=== PATIENT | female | born 1975 | race Caucasian/White ===

== ENCOUNTER 2019-01-22 16:43 | Emergency (ER) | payer OTHER ==
[2019-01-22 16:54] VITALS: RESP 18; TEMP 98.4; O2SAT 100; BMI 29.4
[2019-01-22] MEDS ORDERED: Sodium Chloride 0.9% 1,000 ML IV STA (17:05)
--- NOTE | 2019-01-22 17:05 | ED PDOC ---
Arrival/HPI - General Chief Complaint: Abdominal Pain Historian: Patient - History of Present Illness Narrative History of Present Illness (Text): 01/22/19 17:02 43 y/o female, no significant pmh, nkda, c/o epigastric pain started this morning with nausea/vomiting x 1 day. Pt. stated that she has been taking motrin for her toothache this week, started epigastric pain this morning, gnawing pain, on and off, admits nausea with no vomiting, no flank pain, no urinary symptoms, no rash, no other medical or psychological complaints. Past Medical History - Provider Review Nursing Documentation Reviewed: Yes - Psychiatric Hx Substance Use: No Family/Social History - Physician Review Nursing Documentation Reviewed: Yes Family/Social History: Unknown Family HX Smoking Status: Never Smoked Hx Alcohol Use: No Hx Substance Use: No Allergies/Home Meds Allergies/Adverse Reactions: Allergies No Known Allergies Allergy (Verified 01/22/19 17:00) Home Medications: Home Meds Medication Instructions Recorded Confirmed Ibuprofen [Motrin Tab] 400 mg PO Q6 PRN 01/22/19 01/22/19 Review of Systems - Review of Systems Constitutional: absent: Fatigue, Fevers Eyes: absent: Vision Changes ENT: absent: Hearing Changes Respiratory: absent: SOB, Cough Cardiovascular: absent: Chest Pain Gastrointestinal: Abdominal Pain, Nausea. absent: Diarrhea, Vomiting Musculoskeletal: absent: Arthralgias, Back Pain, Neck Pain Skin: absent: Rash, Pruritis Neurological: absent: Headache, Dizziness Psychiatric: absent: Anxiety, Depression, Suicidal Ideation Physical Exam Vital Signs Reviewed: Yes Vital Signs Temp Pulse Resp BP Pulse Ox 01/22/19 16:54 98.4 F 100 H 18 135/81 100 Temperature: Afebrile Blood Pressure: Normal Pulse: Tachycardic Respiratory Rate: Normal Appearance: Positive for: Well-Appearing, Non-Toxic, Comfortable Pain Distress: None Mental Status: Positive for: Alert and Oriented X 3 - Systems Exam Head: Present: Atraumatic, Normocephalic Pupils: Present: PERRL Extroacular Muscles: Present: EOMI Conjunctiva: Present: Normal Ears: Present: NORMAL TM, Normal Canal. No: Erythema Mouth: Present: Moist Mucous Membranes, Normal Lips, Normal Tounge, Other (visible couple dental caries on the rt. upper and lower teeth region noted with no gingivitis or gingival abscess) Pharnyx: No: ERYTHEMA, EXUDATE, TONSILS ENLARGED Nose (External): Present: Atraumatic. No: Abrasion, Contusion, Laceration Nose (Internal): Present: Normal Inspection, No Active Bleeding. No: Rhinorrhea, Septal Hematoma, Epistaxis Neck: Present: Normal Range of Motion, Trachea Midline. No: Meningeal Signs, MIDLINE TENDERNESS, Paraspinal Tenderness, Lymphadenopathy Respiratory/Chest: Present: Clear to Auscultation, Good Air Exchange. No: Respiratory Distress, Accessory Muscle Use Cardiovascular: Present: Regular Rate and Rhythm, Normal S1, S2. No: Murmurs Abdomen: Present: Tenderness (epigastric tenderness, no RLQ tenderness, no LLQ). No: Distention, Peritoneal Signs, Rebound, Guarding Back: Present: Normal Inspection. No: CVA Tenderness, Midline Tenderness, Paraspinal Tenderness, Pain with Leg Raise, Decubitus Ulcer Upper Extremity: Present: Normal Inspection. No: Cyanosis, Edema Lower Extremity: Present: Normal Inspection, NORMAL PULSES, Neurovascularly Intact. No: Edema, Tenderness, Swelling Neurological: Present: GCS=15, CN II-XII Intact, Speech Normal, Motor Func Grossly Intact, Normal Cerebellar Funct, Gait Normal, Memory Normal Skin: Present: Warm, Dry, Normal Color. No: Rashes Lymphatic: No: Cervical Adenopathy Psychiatric: Present: Alert, Oriented x 3, Normal Insight, Normal Concentration Medical Decision Making ED Course and Treatment: 01/22/19 17:11 -labs -ekg -gallbladder -IVF/pepcid/zofran -Observe and reassess 01/22/19 18:47 -EKG: NSR @ 97 BPM, no ST elevation or depression, no T wave inversion. -Gallbladder sonogram: Mild fullness of the right renal pelvis. No obstructing calculus identified. Echogenic liver may be seen in setting of hepatic parenchymal disease or fatty infiltration. -Labs: show no acute findings. -UA show no UTI with no cva tenderness, no urinary symptoms, no hematuria. -All labs and radiology results discussed with the patient, advised outpatient GI follow up. Her pain resolved with pepcid/zofran. Percocet ordered for her toothache. -Discharge home with tylenol, pepcid, zofran, bed rest, low fat diet, avoid nsaids as pain medication including motrin/ibuprofen/naproxen, follow up with your own pmd and GI within 2 days, return to the ER for any new or worsening signs or symptoms. - RAD Interpretation Radiology Orders: Date of service: 01/22/2019 HISTORY: epigastric pain COMPARISON: None available. TECHNIQUE: Sonographic evaluation of the right upper quadrant of the abdomen. FINDINGS: LIVER: Measures 15.0 cm in length. Echogenic liver may be seen in setting of hepatic parenchymal disease or fatty infiltration. No focal hepatic mass identified. The main portal vein appears patent with normal directional flow. No intrahepatic bile duct dilatation. GALLBLADDER: Contracted state of gallbladder limits evaluation. No gallstones. No gallbladder wall thickening or pericholecystic edema. Negative sonographic Cam's sign as assessed by the buyer intern. COMMON BILE DUCT: Measures 4 mm. PANCREAS: Not well-visualized. RIGHT KIDNEY: Measures approximately 12.6 x 3.9 x 5.3 cm. Mild fullness of the renal pelvis. No obstructing calculus identified. AORTA: Limited visualization appears grossly unremarkable. IVC: Limited visualization appears grossly unremarkable. OTHER FINDINGS: None . IMPRESSION: Mild fullness of the right renal pelvis. No obstructing calculus identified. Echogenic liver may be seen in setting of hepatic parenchymal disease or fatty infiltration. Aircraft Instrument Mechanic: Radiologist - EKG Interpretation EKG Interpretation (Text): 01/22/19 17:11 -EKG: NSR @ 97 BPM, no ST elevation or depression, no T wave inversion. Interpreted by ED Physician: Yes Type: 12 lead EKG - PA / MACHINE FORMER / Resident Statement MD/DO has reviewed & agrees with the documentation as recorded. Disposition/Present on Arrival - Present on Arrival Any Indicators Present on Arrival: No History of DVT/PE: No History of Uncontrolled Diabetes: No Urinary Catheter: No History of Decub. Ulcer: No History Surgical Site Infection Following: None - Disposition Have Diagnosis and Disposition been Completed?: Yes Diagnosis: Gastritis, Epigastric pain, Dental caries, Fatty liver Disposition: HOME/ ROUTINE Disposition Time: 18:49 Patient Plan: Discharge Patient Problems: Current Active Problems Problem Status Onset Dental caries Acute Epigastric pain Acute Gastritis Acute Condition: IMPROVED Additional Instructions: -Discharge home with tylenol, pepcid, zofran, amoxicillin, bed rest, low fat diet, avoid nsaids as pain medication including motrin/ibuprofen/naproxen, follow up with your own pmd and GI within 2 days, return to the ER for any new or worsening signs or symptoms. Prescriptions: Acetaminophen [Pain Reliever] 500 mg PO QID PRN #25 tablet PRN Reason: Other Amoxicillin 875 mg PO BID #20 tab Famotidine [Pepcid] 20 mg PO BID #30 tab Ondansetron ODT [Zofran ODT] 4 mg PO TID PRN #8 odt PRN Reason: Other Referrals: [facility] [place] [Outside] - Follow up with primary PCP,NO [Primary Care Provider] - Follow up with primary Susan Holguin MD [Medical Doctor] - Follow up with primary Forms: [employer] (Dutch), WORK NOTE
[2019-01-22 17:36] LABS: BASO # 0.03 K/mm3 (0.0-2.0); BASO % 0.3 % (0.0-3.0); EOS # 0.3 (0.0-0.7); EOS % 3.3 % (1.5-5.0); HEMOGLOBIN 11.2 g/dL (12.0-16.0); LYMPH # 3.2 (1.2-3.4); LYMPH % 37.6 % (22.0-35.0); MEAN CELL VOLUME 64.7 fl (80.0-105.0); MEAN CORPUSCULAR HEMOGLOBIN 20.5 pg (25.0-35.0); MEAN CORPUSCULAR HGB CONC 31.6 g/dl (31.0-37.0); MONO # 0.5 (0.1-0.6); PLATELET COUNT 213 10^3/uL (120.0-450.0); RBC 5.47 10^6/uL (3.5-6.1); RED CELL DISTRIBUTION WIDTH 15.1 % (11.5-14.5); WHITE BLOOD COUNT 8.6 10^3/uL (4.5-11.0)
[2019-01-22 17:47] LABS: ALB/GLOB RATIO 1.2 (1.1-1.8); ALBUMIN 4.4 g/dL (3.0-4.8); BLOOD UREA NITROGEN 12 mg/dL (7-21); CALCIUM 9.6 mg/dL (8.4-10.5); GFR NON-AFRICAN AMERICAN > 60; LIPASE 131 U/L (23-300)
[2019-01-22 17:48] LABS: ALT/SGPT 8 U/L (7-56); AST/SGOT 29 U/L (14-36)
[2019-01-22] MEDS ORDERED: Oxycodone/Acetaminophen 5/325 mg Tab PO STA (18:21)
--- NOTE | 2019-01-22 18:22 | US ---
Date of service: 01/22/2019 HISTORY: epigastric pain COMPARISON: None available. TECHNIQUE: Sonographic evaluation of the right upper quadrant of the abdomen. FINDINGS: LIVER: Measures 15.0 cm in length. Echogenic liver may be seen in setting of hepatic parenchymal disease or fatty infiltration. No focal hepatic mass identified. The main portal vein appears patent with normal directional flow. No intrahepatic bile duct dilatation. GALLBLADDER: Contracted state of gallbladder limits evaluation. No gallstones. No gallbladder wall thickening or pericholecystic edema. Negative sonographic Cam's sign as assessed by the inspector final assembly conveyor line. COMMON BILE DUCT: Measures 4 mm. PANCREAS: Not well-visualized. RIGHT KIDNEY: Measures approximately 12.6 x 3.9 x 5.3 cm. Mild fullness of the renal pelvis. No obstructing calculus identified. AORTA: Limited visualization appears grossly unremarkable. IVC: Limited visualization appears grossly unremarkable. OTHER FINDINGS: None . IMPRESSION: Mild fullness of the right renal pelvis. No obstructing calculus identified. Echogenic liver may be seen in setting of hepatic parenchymal disease or fatty infiltration.
[2019-01-22 18:26] LABS: PH,URINE 6.5 (4.7-8.0); URINE BILIRUBIN NEGATIVE (NEGATIVE); URINE BLOOD NEGATIVE (NEGATIVE); URINE GLUCOSE (UA) NEGATIVE (NEGATIVE); URINE LEUKOCYTE ESTERASE NEGATIVE Leu/uL (NEGATIVE); URINE PROTEIN NEGATIVE mg/dL (<30 mg/dL); URINE UROBILINOGEN 0.2 E.U./dL (<1 E.U./dL)
[2019-01-22 18:27] LABS: URINE COLOR STRAW (YELLOW)
[2019-01-22 18:28] LABS: URINE APPEARANCE CLEAR (CLEAR)
[2019-01-22 18:52] VITALS: BP 131/70; PULSE 95
--- NOTE | 2019-01-24 07:50 | CARD ---
APPROVED REPORT Date of service: 01/22/2019 EKG Measurement Heart [id number] <Conclusion> Poor data quality, interpretation may be adversely affected Normal sinus rhythm Normal ECG
== END 2019-01-22 18:58 | disposition home or self-care (01) ==
LOC: ED 16:43
DX: K29.70 Gastritis, unspecified, without bleeding (principal); K76.0 Fatty (change of) liver, not elsewhere classified; K02.9 Dental caries, unspecified
CPT/HCPCS: 76705; 80053; 81003; 81025; 83690; 83735; 85025; 93005; 96361; 96374; 96375; 99284; J2405; J7030